=== PATIENT | male | born 1955 | race Two or more races ===

== ENCOUNTER 2024-02-23 13:34 | Emergency (ER) | payer OTHER ==
[~2024-02-23] VITALS: Ht 182.9 cm; Wt 97.5 kg
[2024-02-23] MEDS ORDERED: VENLAFAXINE HCL75 M2 (13:38)
[2024-02-23] MEDS ORDERED: KAPSPARGO SPRIN25 MG (13:38)
[2024-02-23] MEDS ORDERED: CHILDREN'S ASPI81 MG (13:38)
[2024-02-23] MEDS ORDERED: MEPERIDINE HCL/PF 50 MG/ML VIAL IM ONE (17:15)
[2024-02-23] MEDS ORDERED: TAMSULOSIN HCL 0.4 MG CAP PO ONE (17:15)
== END 2024-02-23 18:44 | disposition home or self-care (01) ==
LOC: ER 13:35
DX: N23 Unspecified renal colic (principal); I10 Essential (primary) hypertension
CPT/HCPCS: 96372; 99282; J3490